=== PATIENT | male | born 2000 | race Caucasian/White ===

== ENCOUNTER 2022-06-30 02:21 | Emergency (ER) | payer OTHER ==
[~2022-06-30] VITALS: Ht 200.7 cm; Wt 75.0 kg
[2022-06-30] MEDS ORDERED: PERTUSS(ACELL),DIPH,TET VAC/PF 0.5 ML SYRINGE IM. ONE (03:15)
[2022-06-30] MEDS ORDERED: ACETAMINOPHEN 325 MG TABLET PO ONE (03:30)
[2022-06-30] MEDS ORDERED: LIDOCAINE 2%/EPI 1:200,000/PF 10 ML VIAL ID ONE (03:30)
[2022-06-30 05:44] VITALS: BP 127/80
== END 2022-06-30 05:46 | disposition home or self-care (01) ==
LOC: EMS 02:23
DX: S61.511A Laceration without foreign body of right wrist, initial encounter (principal); W25.XXXA Contact with sharp glass, initial encounter; Y93.89 Activity, other specified; Y92.89 Other specified places as the place of occurrence of the external cause; Y99.8 Other external cause status
CPT/HCPCS: 12034; 90471; 90715; 99284